=== PATIENT | male | born 1960 | race Caucasian/White ===

== ENCOUNTER 2024-10-04 16:36 | Emergency (ER) | payer SELFPAY ==
--- NOTE | 2024-10-04 17:33 | RAD REPORT ---
EXAMINATION: Head Brain Wo Cont CLINICAL INDICATION: Male, 64 years old.TRAUMA TECHNIQUE: Axial CT images from the skull base to the vertex without intravenous contrast. Coronal an d sagittal reformatted images were created from the data set. One or more of the following dose reduction techniques were used: Automated exposure control, adjustment of the mA and/or kV according to patient size, and/or iterative reconstruction. Unless otherwise specified, incidental findings do not require dedicated imaging follow-up. [id number]. COMPARISON: No prior exam. FINDINGS: INTRACRANIAL: No acute intracranial hemorrhage. No hydrocephalus. No mass effect or midline shift. Mi ld chronic small vessel ischemic changes.Mild cerebral atrophy. VASCULATURE: No visualized abnormalities in the arteries or dural venous sinuses. SCALP/SKULL: No calvarial fracture identified. Right cheek and forehead laceration and hematoma. SINUSES: The visualized paranasal sinuses are mostly clear. No significant mastoid fluid. IMPRESSION: No acute intracranial abnormality.
[2024-10-04] MEDS ORDERED: LIDOCAINE 1% 20 ML MDV ONE (17:58)
--- NOTE | 2024-10-04 19:22 | EDPHYS ---
Physician Documentation [facility] Name: Michael Diaz Age: 64 yrs Sex: Male : 1960 Arrival Date: 10/04/2024 Time: 16:36 Bed 4 Private MD: ED Physician Lawanda Doss HPI: 10/04 19:26 This 64 yrs old Male presents to ER via EMS with complaints of gb1 FALL/LACERATION. Historical: - Allergies: 17:37 No Known Allergies; bp - Home Meds: 17:37 Unable to obtain [Active]; bp - PMHx: 17:37 Hypertensive disorder; bp - Immunization history:: Adult Immunizations up to date. - Infectious Disease History:: Denies. - Social history:: Smoking status: Patient reports the use of cigarette tobacco products, unknown amount. Exam: 19:26 Constitutional: This is a well developed, well nourished patient who is awake, alert, gb1 and in no acute distress. Head/Face: Patient with a right orbital contusion and a 1-1/2 inch laceration supraorbital on the right eyebrow.. He has another very small 5 cm laceration infraorbitally on the right lateral region. ENT: Nares patent. No nasal discharge, no septal abnormalities noted. Tympanic membranes are normal and external auditory canals are clear. Oropharynx with no redness, swelling, or masses, exudates, or evidence of obstruction, uvula midline. Mucous membranes moist. Neck: Trachea midline, no thyromegaly or masses palpated, and no cervical lymphadenopathy. Supple, full range of motion without nuchal rigidity, or vertebral point tenderness. No Meningismus. Chest/axilla: Normal chest wall appearance and motion. Nontender with no deformity. No lesions are appreciated. Cardiovascular: Regular rate and rhythm with a normal S1 and S2. No gallops, murmurs, or rubs. Normal PMI, no JVD. No pulse deficits. Respiratory: Lungs have equal breath sounds bilaterally, clear to auscultation and percussion. No rales, rhonchi or wheezes noted. No increased work of breathing, no retractions or nasal flaring. Abdomen/GI: Soft, non-tender, with normal bowel sounds. No distension or tympany. No guarding or rebound. No evidence of tenderness throughout. Back: No spinal tenderness. No costovertebral tenderness. Full range of motion. MS/ Extremity: Pulses equal, no cyanosis. Neurovascular intact. Full, normal range of motion. Neuro: Awake and alert, GCS 15, oriented to person, place, time, and situation. Cranial nerves II-XII grossly intact. Motor strength 5/5 in all extremities. Sensory grossly intact. Cerebellar exam normal. Normal gait. Vital Signs: 17:35 BP 154 / 94; Pulse 85; Resp 16; Temp 98; Pulse Ox 98% ; bp Laceration: 19:26 Wound Repair of 3.8cm ( 1.5in ) subcutaneous laceration to face. Distal gb1 neuro/vascular/tendon intact. Anesthesia: Local anesthetic administered with 5 mls of 1% lidocaine w/ Epi, Local anesthetic administered with 1% lidocaine. Wound prep: Extensive cleansing with betadine with hibiclenz by nurse, Wound debrided, Wound explored, Copious irrigation. Skin closed with 5 4-0 Prolene using simple sutures and sterile technique. Dressed with pressure dressing. Patient tolerated well. MDM: 16:51 Medical Screening Exam initiated gb1 19:26 Data reviewed: vital signs, nurses notes, radiologic studies, CT scan, 64-year-old male gb1 intoxicated took a ground-level fall and had a right superior orbital eyelid laceration. Eyebrow laceration. I repaired it as documented without incident. Patient had a negative CT scan of the brain--no acute intracranial abnormalities. No subdural hematoma or any signs of skull fracture. Patient is ambulating to the bathroom without assistance and on his own volition. At this time I will discharge her home with instructions for suture removal in 5 to 7 days. Patient is compliant with this plan of care.. 03 16:51 Order name: CT Head Brain wo Cont; Complete Time: 18:05 10/04 16:52 Order name: Dressing - Wound; Complete Time: 18:04 10/04 16:52 Order name: Gloves, Sterile; Complete Time: 18:04 10/04 16:52 Order name: Prolene, Sutures; Complete Time: 18:04 10/04 16:52 Order name: Setup Suture Tray; Complete Time: 18: 10/04 17:13 Order name: Wound Care; Complete Time: 18:18 gb1 Administered Medications: 18:04 Drug: Lidocaine Infiltration (2 %) 5 ml 5 ml Infiltration once; to bedside Volume: 5 bp ml; Route: Infiltration; Disposition Summary: 10/04/24 19:21 Discharge Ordered Notes: Location: Home gb1 Problem: new gb1 Symptoms: have improved gb1 Condition: Stable gb1 Diagnosis - Facial Laceration/ Laceration without foreign body of cheek and temporomandibular gb1 area - Fall on same level from slipping, tripping and stumbling with subsequent striking gb1 against object - Alcohol abuse with intoxication gb1 Followup: gb1 - With: Private Physician - When: - Reason: Wound Recheck Discharge Instructions: - Discharge Summary Sheet gb1 - Laceration Care, Adult gb1 - Facial Laceration, [id number] gb1 - Sutured Wound Care, [id number] gb1 Forms: - Medication Reconciliation Form gb1 - Antibiotic Education gb1 - Prescription Opioid Use gb1 - Patient Portal Instructions gb1 - Leadership Thank You Letter gb1 - Family Work Release br2 Signatures: Dispatcher [employer] Bharath Edmond, RN RN Lawanda Espitia MD MD gb1
--- NOTE | 2024-10-04 19:22 | ER ---
Nurse's Notes [facility] Name: Michael Diaz Age: 64 yrs Sex: Male : 1960 Arrival Date: 10/04/2024 Time: 16:36 Bed 4 Private MD: Diagnosis: Facial Laceration/ Laceration without foreign body of cheek and temporomandibular area;Fall on same level from slipping, tripping and stumbling with subsequent striking against object;Alcohol abuse with intoxication Presentation: 10/04 17:35 Chief complaint: EMS states: +ETOH, MECHANICAL FALL [place], R BROW LAC, +LOC. bp Coronavirus screen: At this time, the client does not indicate any symptoms associated with coronavirus-19. Ebola Screen: No symptoms or risks identified at this time. Initial Sepsis Screen: Does the patient meet any 2 criteria? No. Patient's initial sepsis screen is negative. Does the patient have a suspected source of infection? No. Patient's initial sepsis screen is negative. Risk Assessment: Do you want to hurt yourself or someone else? Patient reports no desire to harm self or others. Onset of symptoms is unknown. 17:35 Method Of Arrival: EMS: [facility] bp 17:35 Acuity: JENIFFER 3 bp Triage Assessment: 17:37 General: Appears in no apparent distress. Behavior is calm, cooperative, appropriate bp for age. Pain: Complains of pain in face. EENT: No deficits noted. Neuro: Level of Consciousness is awake, alert, obeys commands, Oriented to Appropriate for age. Cardiovascular: No deficits noted. Respiratory: No deficits noted. GI: No signs and/or symptoms were reported involving the gastrointestinal system. : No signs and/or symptoms were reported regarding the genitourinary system. Derm: No deficits noted. Musculoskeletal: No deficits noted. Historical: - Allergies: 17:37 No Known Allergies; bp - Home Meds: 17:37 Unable to obtain [Active]; bp - PMHx: 17:37 Hypertensive disorder; bp - Immunization history:: Adult Immunizations up to date. - Infectious Disease History:: Denies. - Social history:: Smoking status: Patient reports the use of cigarette tobacco products, unknown amount. Screenin:38 [facility] ED Fall Risk Assessment (Adult) History of falling in the last 3 months, bp including since admission Yes- single mechanical fall (1 pt) Confusion or Disorientation No (0 pts) Intoxicated or Sedated Yes (3 pts) Impaired Gait No (0 pts) Mobility Assist Device Used No (0 pt) Altered Elimination No (0 pt) Score/Fall Risk Level 3 or more points = High Risk Oriented to surroundings. Abuse screen: Denies threats or abuse. Denies injuries from another. Nutritional screening: No deficits noted. Tuberculosis screening: No symptoms or risk factors identified. Assessment: 17:38 General: Appears in no apparent distress. comfortable, Behavior is calm, cooperative, bp appropriate for age. 19:30 Reassessment: PATIENT LEFT BEFORE SIGNING DISCHARGE PAPER WORK. ha1 Vital Signs: 17:35 BP 154 / 94; Pulse 85; Resp 16; Temp 98; Pulse Ox 98% ; bp ED Course: 16:42 Patient arrived in ED. ll1 16:42 Lawanda Doss MD is Attending Physician. gb1 16:44 security secured Glock 40 and clip upon arrival. Valuables sheet completed. ll1 17:21 CT Head Brain wo Cont In Process Unspecified. EDMS 17:33 Bharath Rivers, RN is Primary Nurse. bp 17:33 Arm band placed on Patient placed in an exam room, on a stretcher. ll1 17:37 Triage completed. bp 17:38 Patient has correct armband on for positive identification. bp 19:30 Provided Education on: NEED TO WAIT FOR WOUND CARE . ha1 19:30 No provider procedures requiring assistance completed. ha1 19:30 Patient did not have IV access during this emergency room visit. ha1 Administered Medications: 18:04 Drug: Lidocaine Infiltration (2 %) 5 ml 5 ml Infiltration once; to bedside Volume: 5 bp ml; Route: Infiltration; Medication: 17:38 VIS not applicable for this client. bp Outcome: 19:21 Discharge ordered by . gb1 19:30 Discharged to home ambulatory, ha1 19:30 Condition: stable 19:30 Discharge instructions given to patient, 20:05 Patient left the ED. ha1 Signatures: Dispatcher [employer] EDMS Bharath Rivers, Miguel Ruiz RN, RN RN [facility] Latoya Delatorre RN RN [facility] Lawanda Doss MD MD [facility]
[2024-10-04 20:22] VITALS: BP 154/94; TEMP 98; O2SAT 98
== END 2024-10-04 20:05 | disposition home or self-care (01) ==
LOC: ER 16:36
DX: S01.81XA Laceration without foreign body of other part of head, initial encounter (principal); W18.30XA Fall on same level, unspecified, initial encounter; Z72.0 Tobacco use
CPT/HCPCS: 12052; 70450; 99283; J2003

== ENCOUNTER 2024-10-17 14:57 | Emergency (ER) | payer SELFPAY ==
--- NOTE | 2024-10-17 16:11 | ER ---
Nurse's Notes [facility] Name: Michael Diaz Age: 64 yrs Sex: Male : 1960 Arrival Date: 10/17/2024 Time: 14:57 Bed 11 Private MD: Diagnosis: Encounter for removal of sutures Presentation: 10/17 15:44 Chief complaint: Patient states: needs sutures removed from right upper eye area. iw Coronavirus screen: At this time, the client does not indicate any symptoms associated with coronavirus-19. Ebola Screen: No symptoms or risks identified at this time. Risk Assessment: Do you want to hurt yourself or someone else? Patient reports no desire to harm self or others. 15:44 Method Of Arrival: Ambulatory iw 15:44 Acuity: JENIFFER 4 iw 15:45 Initial Sepsis Screen: Does the patient meet any 2 criteria? No. Patient's initial iw sepsis screen is negative. Does the patient have a suspected source of infection? No. Patient's initial sepsis screen is negative. Historical: - PMHx: 15:45 Hypertensive disorder; iw Vital Signs: 15:45 BP 154 / 74; Pulse 79; Resp 16; Pulse Ox 97% on R/A; iw ED Course: 15:02 Patient arrived in ED. cj3 15:03 Andres Delacruz PA is PHCP. cp 15:03 Phan Strickland MD is Attending Physician. cp 15:45 Triage completed. iw 15:45 Arm band placed on. iw 15:46 Marta Lagunas RN is Primary Nurse. iw Administered Medications: No medications were administered Outcome: 16:10 Discharge ordered by . cp 16:20 Discharged to home ambulatory, iw 16:20 Discharge instructions given to patient, Instructed on discharge instructions, follow up and referral plans. 16:20 No charge visit due to suture removal. 16:21 Patient left the ED. iw Signatures: Marta Lagunas RN RN iw Andres Delacruz PA PA cp Johnson, Celeste cj3
--- NOTE | 2024-10-17 16:11 | EDPHYS ---
Physician Documentation [facility] Name: Michael Diaz Age: 64 yrs Sex: Male : 1960 Arrival Date: 10/17/2024 Time: 14:57 Bed 11 Private MD: ED Physician Phan Strickland HPI: 10/17 16:00 This 64 yrs old Male presents to ER via Ambulatory with complaints of Suture Removal. cp 16:00 The patient has sutures on the above right eye. cp 16:00 Previous treatment: The patient was initially treated on October 04, 2024, the care was cp rendered at [facility], Treatment type: The patient's original treatment included sutures. Sutures/hilda progress: The patient has no c/o's. The wound is well-healing with no redness, swelling, discharge, or dehiscence reported. Historical: - PMHx: 15:45 Hypertensive disorder; iw ROS: 16:05 Skin: Positive for repaired laceration above right eye, cp Exam: 16:07 Skin: Wound recheck: repaired laceration above right eye appears well healed with no cp skin dehiscence, no swelling, no erythema noted and no drainage expressed. 6 blue colored sutures in place, Vital Signs: 15:45 BP 154 / 74; Pulse 79; Resp 16; Pulse Ox 97% on R/A; iw Procedures: 16:09 Suture/Staple removal: Removed 6 sutures, from above right eye, site appears well cp healed, dressed with Neosporin, Patient tolerated well. MDM: 15:44 Medical Screening Exam initiated cp 16:10 Data reviewed: vital signs, nurses notes, and as a result, I will discharge patient. cp Administered Medications: No medications were administered Disposition: 10/18 15:22 Chart complete. cp Disposition Summary: 10/17/24 16:10 Discharge Ordered Notes: Location: Home cp Problem: new cp Symptoms: have improved cp Condition: Stable cp Diagnosis - Encounter for removal of sutures cp Followup: cp - With: Private Physician - When: As needed - Reason: Worsening of condition Discharge Instructions: - Discharge Summary Sheet cp - How to Change Your Wound Dressing cp - Suture Removal, Care After cp Forms: - Medication Reconciliation Form cp - Antibiotic Education cp - Prescription Opioid Use cp - Patient Portal Instructions cp - Leadership Thank You Letter cp Signatures: Marta Lagunas RN RN iw Andres Delacruz, LIU PA cp
== END 2024-10-17 16:21 | disposition home or self-care (01) ==
LOC: ER 14:57
DX: Z48.02 Encounter for removal of sutures (principal)